=== PATIENT | male | born 1965 | race Caucasian/White ===

== ENCOUNTER 2021-11-16 18:24 | Inpatient (IN) ==
[2021-11-16 20:16] LABS: Basophils % 0.4 %; Eosinophils # 0.3 K/mcL (0.0-0.6); Eosinophils % 3.2 %; Hematocrit 53.7 % (37.5-50.1); Hemoglobin 18.2 g/dL (12.9-16.9); Immature Granulocytes % 0.3 % (0-4); Lymphocytes # 1.9 K/mcL (0.6-4.6); Lymphocytes % 20.6 %; Mean Corpuscular HGB Conc 33.9 g/dL (31.6-35.5); Mean Corpuscular Hemoglobin 30.8 pg (28.0-33.3); Mean Corpuscular Volume 90.9 fL (83.0-100.0); Mean Platelet Volume 9.8 fL (9.4-12.4); Monocytes % 10.5 %; Platelet Count 227 K/mcL (140-400); Red Blood Count 5.91 M/mcL (4.19-5.50); Red Cell Distribution Width 12.6 % (11.5-14.5); White Blood Count 9.3 K/mcL (4.3-11.1)
[2021-11-16] MEDS: 0.9 % Sodium Chloride 1,000 ML ONE (20:18)
[2021-11-16] MEDS ORDERED: Levalbuterol Neb 1.25 MG/3 ML IH ONE ×2 (20:24→21:46)
[2021-11-16 20:39] LABS: BUN/Creatinine Ratio 17 (6-26); Blood Urea Nitrogen 16 mg/dL (6-20); Calcium 8.4 mg/dL (8.6-10.3); Carbon Dioxide 26 mEq/L (23-29); Chloride 98 mEq/L (98-107); Glucose 142 mg/dL (70-105); Osmolality,Calculated 280 (280-300); Potassium 4.3 mEq/L (3.5-5.1); Sodium 133 mEq/L (136-145); eGFR For African Americans > 60 (> 60); eGFR For Non-African Americans > 60 (> 60)
[2021-11-16 20:44] LABS: Troponin I 0.08 ng/mL (< 0.04)
[2021-11-16] MEDS ORDERED: Isovue-370 500 ML BOTTLE IVP ONE (20:50)
[2021-11-16] MEDS ORDERED: Morphine Sulfate 2 MG/ML SYRINGE IVP ONE (21:05)
[2021-11-16] MEDS ORDERED: *HR* FentaNYL (PF) 100 MCG/2 ML VIAL IVP ONE (21:27)
[2021-11-16] MEDS ORDERED: methylPREDNISolone 125 MG/2 ML VIAL IVP ONE (21:47)
[2021-11-16] MEDS ORDERED: *HR* Heparin 5,000 UNIT/ML VIAL IVP ONE (22:01)
[2021-11-16] MEDS ORDERED: *HR* Heparin 5,000 UNIT/ML VIAL IVP PRN ×2 (22:01)
[2021-11-16] MEDS ORDERED: Heparin 25,000UNIT/250ML 1/2NS 25,000 UNIT/250 ML IV.SOLN IVC SCH (22:15)
[2021-11-16 22:37] LABS: INR 1.2
[2021-11-16 22:40] LABS: Activated Partial Thrombo Time 29.6 Seconds (26.0-36.0)
[2021-11-16 23:14] LABS: Influenza A PCR Negative (Negative); Influenza B PCR Negative (Negative); Resp. Syncytial Virus PCR Negative (Negative)
[2021-11-16] MEDS ORDERED: Furosemide 20 MG/2 ML VIAL IVP ONE (23:16)
[2021-11-16 23:28] LABS: SARS-CoV-2 by PCR (In House) Positive (Negative)
[2021-11-17] MEDS ORDERED: Naloxone 0.4 MG/ML INJ IVP PRN (01:22)
[2021-11-17] MEDS ORDERED: Acetaminophen 325 MG TABLET PO PRN (01:22)
[2021-11-17] MEDS ORDERED: Ondansetron 4 MG/2 ML VIAL IVP PRN (01:22)
[2021-11-17 02:14] LABS: White Blood Count 9.7 K/mcL (4.3-11.1)
[2021-11-17 02:15] LABS: Basophils % 0.3 %; Hematocrit 51.8 % (37.5-50.1); Hemoglobin 17.7 g/dL (12.9-16.9); Immature Granulocytes % 0.8 % (0-4); Lymphocytes # 0.9 K/mcL (0.6-4.6); Lymphocytes % 9.1 %; Mean Corpuscular HGB Conc 34.2 g/dL (31.6-35.5); Mean Corpuscular Hemoglobin 30.6 pg (28.0-33.3); Mean Corpuscular Volume 89.5 fL (83.0-100.0); Mean Platelet Volume 10.1 fL (9.4-12.4); Monocytes # 0.2 K/mcL (0.0-1.3); Monocytes % 2.3 %; Neutrophils # 8.5 K/mcL (1.6-8.9); Platelet Count 226 K/mcL (140-400); Red Blood Count 5.79 M/mcL (4.19-5.50); Red Cell Distribution Width 12.6 % (11.5-14.5); Segmented Neutrophils % 87.5 %
[2021-11-17 02:17] LABS: INR 1.3; Prothrombin Time 14.3 Seconds (9.4-12.1)
[2021-11-17] MEDS ORDERED: *HR* Metoprolol 5 MG/5 ML VIAL IVP ONE ×2 (02:25→03:38)
[2021-11-17 02:26] LABS: Alanine Aminotransferase 28 Units/L (7-52); Albumin 4.1 g/dL (3.5-5.7); Albumin/Globulin Ratio 1.3 (1.1-2.2); Alkaline Phosphatase 59 Units/L (34-104); Aspartate Amino Transferase 20 Units/L (13-39); BUN/Creatinine Ratio 20 (6-26); Bilirubin,Total 1.1 mg/dL (0.3-1.0); Blood Urea Nitrogen 15 mg/dL (6-20); C-Reactive Protein 24 mg/L (Less than 10); Calcium 8.8 mg/dL (8.6-10.3); Carbon Dioxide 23 mEq/L (23-29); Chloride 99 mEq/L (98-107); Globulin 3.2 g/dL (2.4-3.5); Glucose 150 mg/dL (70-105); Lactate Dehydrogenase 168 Units/L (140-271); Magnesium 1.7 mg/dL (1.6-2.6); Osmolality,Calculated 280 (280-300); Phosphorous 3.1 mg/dL (2.7-4.5); Sodium 133 mEq/L (136-145); Total Protein 7.3 g/dL (6.4-8.9); eGFR For African Americans > 60 (> 60); eGFR For Non-African Americans > 60 (> 60)
[2021-11-17] MEDS ORDERED: Aspirin Enteric Coated 325 MG Tablet PO ONE (02:26)
[2021-11-17] MEDS ORDERED: Perflutren Lipid Microsphere 1.3 ML in 0.9 % Sodium Chloride 8.7 ML IVP PRN (02:31)
[2021-11-17] MEDS ORDERED: Nicotine 2 MG GUM BC ONE (02:34)
[2021-11-17 02:35] LABS: Troponin I 0.07 ng/mL (< 0.04)
[2021-11-17 02:42] LABS: Activated Partial Thrombo Time 239.1 Seconds (26.0-36.0)
[2021-11-17 02:47] LABS: Ferritin 366 ng/mL (20-250)
[2021-11-17] MEDS ORDERED: Saliva Stimulant 44.3ml BOTTLE PO PRN (02:53)
[2021-11-17] MEDS ORDERED: Saline Nasal Spray 44 ML BOTTLE NS PRN (02:53)
[2021-11-17] MEDS ORDERED: *HR* Heparin 5,000 UNIT/ML VIAL IVP PRN ×2 (03:11)
[2021-11-17] MEDS ORDERED: DilTIAZem 50 MG/50 ML IV.SOLN IVC SCH (03:45)
[2021-11-17] MEDS ORDERED: *HR* LORazepam 0.5 MG TABLET PO ONE (03:51)
[2021-11-17] MEDS ORDERED: MethylPREDNISolone 40 MG/ML VIAL IVP SCH (04:00)
[2021-11-17] MEDS ORDERED: Metoprolol XL (24 HR) Succ 50 MG TAB.ER.24H PO SCH ×2 (04:00→09:00)
[2021-11-17] MEDS ORDERED: Remdesivir 200 MG in 0.9 % Sodium Chloride 100 ML IVPB ONE (05:00)
[2021-11-17] MEDS: Heparin 25,000UNIT/250ML 1/2NS 25,000 UNIT/250 ML IV.SOLN IVC SCH ×2 (05:04→21:38)
[2021-11-17 05:21] LABS: Chol/HDL Ratio 5.4 (0-4.9)
[2021-11-17 05:33] LABS: Thyroid Stimulating Hormone 0.379 mcIU/mL (0.340-5.600)
[2021-11-17] MEDS ORDERED: D5% in Water 1,000 ML IVC PRN (06:36)
[2021-11-17] MEDS ORDERED: *HR* Dextrose 50 % in Water (Syg) 50 ML SYRINGE IVP PRN (06:36)
[2021-11-17] MEDS ORDERED: Dextrose Gel 15 GM/37.5 ML TUBE PO PRN ×2 (06:36)
[2021-11-17] MEDS: Levalbuterol Neb 0.63 MG/3 ML IH SCH ×2 (07:56→11:49)
[2021-11-17] MEDS: Ipratropium Neb 0.5 MG NEBULIZER IH SCH ×2 (07:56→11:49)
[2021-11-17] MEDS: Furosemide 20 MG/2 ML VIAL IVP SCH (08:27)
[2021-11-17] MEDS: Cholecalciferol (D-3) 1,000 UNIT (25MCG) TABLET PO SCH (08:28)
[2021-11-17] MEDS: cefTRIAXone 1,000 MG in Water for inj. (sterile) 10 ML IVP SCH (08:28)
[2021-11-17] MEDS: Multivit/Ca/Min/Fe/FA 1 TAB TABLET PO SCH (08:28)
[2021-11-17] MEDS: Metoprolol XL (24 HR) Succ 25 MG TAB.ER.24H PO SCH ×2 (08:28→20:09)
[2021-11-17] MEDS: Chlorhexidine Rinse 15 ML MOUTHWASH MM SCH ×2 (08:28→20:09)
[2021-11-17] MEDS: *HR* OxyCODONE/APAP 5/325 TABLET PO PRN ×3 (08:28→21:37)
[2021-11-17] MEDS: Insulin LISPRO 300 UNITS/3 ML VIAL SUBQ SCH ×2 (08:34→12:59)
[2021-11-17] MEDS: Doxycycline 100 MG in 0.9 % Sodium Chloride Mini Bag 100 ML IVPB SCH ×2 (08:34→18:03)
[2021-11-17] MEDS ORDERED: Artificial Tears SOLN 15 ML BOTTLE BOTH EYES SCH (09:00)
[2021-11-17 09:15] LABS: Estimated Average Glucose 126 mg/dl
[2021-11-17 09:59] LABS: Amphetamine Screen,Urine Negative ng/mL (Cutoff=1000); Barbiturate Screen,Urine Negative ng/mL (Cutoff=200); Benzodiazepines Screen,Urine Negative ng/mL (Cutoff=200); Cannabinoid Screen,Urine Positive ng/mL (Cutoff = 50); Cocaine Screen,Urine Negative ng/mL (Cutoff= 300); Opiate Screen,Urine Positive ng/mL (Cutoff=300); Phencyclidine Screen,Urine Negative ng/mL (Cutoff=25)
[2021-11-17] MEDS ORDERED: Budesonide/Formoterol 160/4.5 1 PUFF INH IH SCH (10:00)
[2021-11-17] MEDS: Ipratropium 1 PUFF INHALER IH SCH ×2 (16:41→22:35)
[2021-11-17] MEDS ORDERED: *HR* Metoprolol 5 MG/5 ML VIAL IVP STA (18:37)
[2021-11-17] MEDS ORDERED: 0.9 % Sodium Chloride 1,000 ML ONE (19:51)
[2021-11-17] MEDS: Melatonin 3 MG TABLET PO PRN (20:09)
[2021-11-17] MEDS: Budesonide/Formoterol 160/4.5 1 PUFF INH IH SCH (22:34)
[2021-11-18 01:25] LABS: Basophils % 0.1 %; Hemoglobin 15.9 g/dL (12.9-16.9); Immature Granulocytes % 0.5 % (0-4); Lymphocytes # 1.6 K/mcL (0.6-4.6); Lymphocytes % 16.4 %; Mean Corpuscular HGB Conc 34.6 g/dL (31.6-35.5); Mean Corpuscular Hemoglobin 31.2 pg (28.0-33.3); Mean Corpuscular Volume 90.4 fL (83.0-100.0); Mean Platelet Volume 9.9 fL (9.4-12.4); Monocytes # 0.9 K/mcL (0.0-1.3); Monocytes % 8.6 %; Neutrophils # 7.5 K/mcL (1.6-8.9); Platelet Count 204 K/mcL (140-400); Red Blood Count 5.09 M/mcL (4.19-5.50); Red Cell Distribution Width 12.6 % (11.5-14.5); Segmented Neutrophils % 74.4 %
[2021-11-18 01:42] LABS: BUN/Creatinine Ratio 22 (6-26); Blood Urea Nitrogen 20 mg/dL (6-20); Calcium 8.7 mg/dL (8.6-10.3); Carbon Dioxide 24 mEq/L (23-29); Chloride 101 mEq/L (98-107); Glucose 153 mg/dL (70-105); Magnesium 1.9 mg/dL (1.6-2.6); Osmolality,Calculated 278 (280-300); Potassium 4.5 mEq/L (3.5-5.1); Sodium 131 mEq/L (136-145); eGFR For African Americans > 60 (> 60); eGFR For Non-African Americans > 60 (> 60)
[2021-11-18] MEDS: Ipratropium 1 PUFF INHALER IH SCH ×4 (03:57→20:35)
[2021-11-18] MEDS: Remdesivir 100 MG in 0.9 % Sodium Chloride 100 ML IVPB SCH (05:39)
[2021-11-18] MEDS: Doxycycline 100 MG in 0.9 % Sodium Chloride Mini Bag 100 ML IVPB SCH ×2 (05:40→17:26)
[2021-11-18] MEDS: 0.9 % Sodium Chloride 1,000 ML ONE (05:41)
[2021-11-18] MEDS: cefTRIAXone 1,000 MG in Water for inj. (sterile) 10 ML IVP SCH (07:59)
[2021-11-18] MEDS: Furosemide 20 MG/2 ML VIAL IVP SCH (08:00)
[2021-11-18] MEDS: Chlorhexidine Rinse 15 ML MOUTHWASH MM SCH (08:00)
[2021-11-18] MEDS: Cholecalciferol (D-3) 1,000 UNIT (25MCG) TABLET PO SCH (08:01)
[2021-11-18] MEDS: Aspirin Enteric Coated 81 MG Tablet PO SCH (08:01)
[2021-11-18] MEDS: Multivit/Ca/Min/Fe/FA 1 TAB TABLET PO SCH (08:01)
[2021-11-18] MEDS: *HR* OxyCODONE/APAP 5/325 TABLET PO PRN ×3 (08:02→19:57)
[2021-11-18] MEDS: Metoprolol XL (24 HR) Succ 25 MG TAB.ER.24H PO SCH ×2 (08:02→19:58)
[2021-11-18] MEDS: Budesonide/Formoterol 160/4.5 1 PUFF INH IH SCH ×2 (10:56→20:33)
[2021-11-18 17:47] LABS: Albumin/Globulin Ratio 1.5 (1.1-2.2); Bilirubin,Direct 0.1 mg/dL (0.0-0.2); Bilirubin,Indirect 0.3 mg/dL (0.0-1.0); Bilirubin,Total 0.4 mg/dL (0.3-1.0); Globulin 2.6 g/dL (2.4-3.5); Total Protein 6.6 g/dL (6.4-8.9)
[2021-11-18] MEDS: Melatonin 3 MG TABLET PO PRN (19:58)
[2021-11-18] MEDS: Heparin 25,000UNIT/250ML 1/2NS 25,000 UNIT/250 ML IV.SOLN IVC SCH (22:02)
[2021-11-19] MEDS: Ipratropium 1 PUFF INHALER IH SCH ×2 (03:33→10:56)
[2021-11-19] MEDS: *HR* OxyCODONE/APAP 5/325 TABLET PO PRN (04:48)
[2021-11-19] MEDS: Remdesivir 100 MG in 0.9 % Sodium Chloride 100 ML IVPB SCH (04:50)
[2021-11-19] MEDS: Doxycycline 100 MG in 0.9 % Sodium Chloride Mini Bag 100 ML IVPB SCH (04:57)
[2021-11-19 06:13] LABS: Basophils % 0.1 %; Eosinophils % 0.1 %; Hemoglobin 15.7 g/dL (12.9-16.9); Immature Granulocytes % 0.7 % (0-4); Lymphocytes # 1.9 K/mcL (0.6-4.6); Lymphocytes % 20.8 %; Mean Corpuscular HGB Conc 34.1 g/dL (31.6-35.5); Mean Corpuscular Volume 90.9 fL (83.0-100.0); Mean Platelet Volume 10.4 fL (9.4-12.4); Monocytes # 0.6 K/mcL (0.0-1.3); Monocytes % 6.5 %; Neutrophils # 6.6 K/mcL (1.6-8.9); Platelet Count 224 K/mcL (140-400); Red Blood Count 5.06 M/mcL (4.19-5.50); Red Cell Distribution Width 12.7 % (11.5-14.5); Segmented Neutrophils % 71.8 %; White Blood Count 9.1 K/mcL (4.3-11.1)
[2021-11-19 06:21] LABS: BUN/Creatinine Ratio 32 (6-26); Blood Urea Nitrogen 24 mg/dL (6-20); Calcium 8.7 mg/dL (8.6-10.3); Carbon Dioxide 26 mEq/L (23-29); Chloride 100 mEq/L (98-107); Glucose 129 mg/dL (70-105); Magnesium 1.9 mg/dL (1.6-2.6); Osmolality,Calculated 282 (280-300); Potassium 3.9 mEq/L (3.5-5.1); Sodium 133 mEq/L (136-145); eGFR For African Americans > 60 (> 60); eGFR For Non-African Americans > 60 (> 60)
[2021-11-19 06:23] LABS: Albumin 3.8 g/dL (3.5-5.7); Albumin/Globulin Ratio 1.5 (1.1-2.2); Bilirubin,Direct 0.1 mg/dL (0.0-0.2); Bilirubin,Indirect 0.3 mg/dL (0.0-1.0); Bilirubin,Total 0.4 mg/dL (0.3-1.0); Globulin 2.5 g/dL (2.4-3.5); Total Protein 6.3 g/dL (6.4-8.9)
[2021-11-19 08:38] VITALS: TEMP 98.5
[2021-11-19] MEDS: cefTRIAXone 1,000 MG in Water for inj. (sterile) 10 ML IVP SCH (09:01)
[2021-11-19] MEDS: Cholecalciferol (D-3) 1,000 UNIT (25MCG) TABLET PO SCH (09:03)
[2021-11-19] MEDS: Aspirin Enteric Coated 81 MG Tablet PO SCH (09:03)
[2021-11-19] MEDS: Metoprolol XL (24 HR) Succ 25 MG TAB.ER.24H PO SCH (09:03)
[2021-11-19] MEDS: Multivit/Ca/Min/Fe/FA 1 TAB TABLET PO SCH (09:03)
[2021-11-19] MEDS: Furosemide 20 MG/2 ML VIAL IVP SCH (09:03)
[2021-11-19 09:06] VITALS: BP 129/105; PULSE 76
[2021-11-19] MEDS: Budesonide/Formoterol 160/4.5 1 PUFF INH IH SCH (10:57)
[2021-11-19 11:03] VITALS: O2SAT 92
== END 2021-11-19 11:20 | disposition left against medical advice (07) | DRG 177 ==
LOC: 2NENU 18:24 → EMEROOARM 18:24 → SUATTDRO 23:33 → 2NENU 11-17 00:45 → SUATTDRO 11-17 06:33
PROVIDERS: ADMIT Internal Medicine; ATTEND Family Medicine

== ENCOUNTER 2022-03-07 11:22 | Inpatient (IN) ==
[2022-03-07] MEDS ORDERED: Furosemide 40 MG/4 ML VIAL IVP ONE (12:06)
[2022-03-07] MEDS ORDERED: Amiodarone Premix 360 MG/200 ML BAG IVC ONE ×2 (12:06→18:58)
[2022-03-07] MEDS ORDERED: Ipratropium/Albuterol Neb 3 ML IH ONE (12:06)
[2022-03-07] MEDS ORDERED: Amiodarone Premix 150 MG/100 ML BAG IVPB ONE (12:09)
[2022-03-07 12:22] LABS: Basophils # 0.1 K/mcL (0.0-0.2); Basophils % 0.4 %; Eosinophils # 0.1 K/mcL (0.0-0.6); Eosinophils % 0.5 %; Hemoglobin 17.1 g/dL (12.9-16.9); Immature Granulocytes % 0.5 % (0-4); Lymphocytes # 1.8 K/mcL (0.6-4.6); Lymphocytes % 14.4 %; Mean Corpuscular HGB Conc 32.9 g/dL (31.6-35.5); Mean Corpuscular Hemoglobin 30.6 pg (28.0-33.3); Mean Platelet Volume 9.3 fL (9.4-12.4); Monocytes # 1.1 K/mcL (0.0-1.3); Monocytes % 8.8 %; Neutrophils # 9.3 K/mcL (1.6-8.9); Platelet Count 333 K/mcL (140-400); Red Blood Count 5.59 M/mcL (4.19-5.50); Red Cell Distribution Width 13.4 % (11.5-14.5); Segmented Neutrophils % 75.4 %; White Blood Count 12.3 K/mcL (4.3-11.1)
[2022-03-07 12:28] LABS: VBG HCO3 29 mEq/L (21-27); VBG PCO2 53 mmHg (41-51); VBG PH 7.35 pH Units (7.32-7.42); VBG PO2 47 mmHg (25-50)
[2022-03-07 12:56] LABS: Alanine Aminotransferase 51 Units/L (7-52); Albumin 4.1 g/dL (3.5-5.7); Albumin/Globulin Ratio 1.3 (1.1-2.2); Alkaline Phosphatase 83 Units/L (34-104); Aspartate Amino Transferase 28 Units/L (13-39); BUN/Creatinine Ratio 39 (6-26); Bilirubin,Direct 0.3 mg/dL (0.0-0.2); Bilirubin,Indirect 1.2 mg/dL (0.0-1.0); Bilirubin,Total 1.5 mg/dL (0.3-1.0); Blood Urea Nitrogen 35 mg/dL (6-20); Calcium 9.3 mg/dL (8.6-10.3); Carbon Dioxide 29 mEq/L (23-29); Chloride 89 mEq/L (98-107); Globulin 3.1 g/dL (2.4-3.5); Glucose 122 mg/dL (70-105); Magnesium 2.3 mg/dL (1.6-2.6); Osmolality,Calculated 271 (280-300); Potassium 4.8 mEq/L (3.5-5.1); Sodium 126 mEq/L (136-145); Total Protein 7.2 g/dL (6.4-8.9)
[2022-03-07] MEDS: Acetaminophen 325 MG TABLET PO ONE ×2 (14:01→14:04)
[2022-03-07] MEDS ORDERED: Naloxone 0.4 MG/ML INJ IVP PRN (14:49)
[2022-03-07 16:00] LABS: Troponin I < 0.03 ng/mL (< 0.04)
[2022-03-07] MEDS ORDERED: Ipratropium/Albuterol Neb 3 ML IH PRN (16:17)
[2022-03-07] MEDS ORDERED: *HR* Heparin 5,000 UNIT/ML VIAL IVP ONE (16:27)
[2022-03-07] MEDS ORDERED: *HR* Heparin 5,000 UNIT/ML VIAL IVP PRN ×2 (16:27)
[2022-03-07] MEDS ORDERED: Heparin 25,000UNIT/250ML 1/2NS 25,000 UNIT/250 ML IV.SOLN IVC SCH ×2 (16:30)
[2022-03-07] MEDS: *HR* HYDROcodone/Acet 5/325 mg TABLET PO PRN ×2 (16:43→20:53)
[2022-03-07] MEDS ORDERED: D5% in Water 1,000 ML IVC PRN (17:08)
[2022-03-07] MEDS ORDERED: *HR* Dextrose 50 % in Water (Syg) 50 ML SYRINGE IVP PRN (17:08)
[2022-03-07] MEDS ORDERED: Dextrose Gel 15 GM/37.5 ML TUBE PO PRN ×2 (17:08)
[2022-03-07 18:52] LABS: Hematocrit 53.7 % (37.5-50.1); Hemoglobin 17.9 g/dL (12.9-16.9); Mean Corpuscular HGB Conc 33.3 g/dL (31.6-35.5); Mean Corpuscular Volume 92.9 fL (83.0-100.0); Mean Platelet Volume 9.4 fL (9.4-12.4); Platelet Count 334 K/mcL (140-400); Red Blood Count 5.78 M/mcL (4.19-5.50); Red Cell Distribution Width 13.4 % (11.5-14.5); White Blood Count 14.8 K/mcL (4.3-11.1)
[2022-03-07 18:58] LABS: INR 1.5; Prothrombin Time 16.6 Seconds (9.4-12.1)
[2022-03-07 19:01] LABS: Activated Partial Thrombo Time 35.3 Seconds (26.0-36.0); Heparin anti-factor XA UFH < 0.04 IU/mL (0.30-0.70)
[2022-03-07] MEDS ORDERED: traZODone 50 MG TABLET PO PRN (20:07)
[2022-03-07] MEDS: Levalbuterol Neb 1.25 MG/3 ML IH SCH ×2 (20:23→20:29)
[2022-03-07] MEDS: Ipratropium Neb 0.5 MG NEBULIZER IH SCH ×2 (20:23→20:29)
[2022-03-07 20:25] LABS: Calcium 9.2 mg/dL (8.6-10.3); Potassium 5.2 mEq/L (3.5-5.1)
[2022-03-07] MEDS ORDERED: Furosemide 80 MG in 0.9 % Sodium Chloride 50 ML IVPB SCH (21:00)
[2022-03-07] MEDS ORDERED: Furosemide 40 MG/4 ML VIAL IVP SCH (21:00)
[2022-03-07] MEDS ORDERED: Insulin LISPRO 300 UNITS/3 ML VIAL SUBQ SCH (21:00)
[2022-03-07 21:26] LABS: Calcium 8.8 mg/dL (8.6-10.3); Magnesium 2.3 mg/dL (1.6-2.6); Potassium 4.6 mEq/L (3.5-5.1)
[2022-03-07] MEDS ORDERED: cefTRIAXone 1,000 MG in 0.9 % Sodium Chloride 10 ML IVP SCH (22:00)
[2022-03-07] MEDS: Ipratropium/Albuterol Neb 3 ML IH SCH (22:42)
[2022-03-07] MEDS: Levalbuterol Neb 0.63 MG/3 ML IH SCH (22:49)
[2022-03-08] MEDS ORDERED: MethylPREDNISolone 40 MG/ML VIAL IVP SCH
[2022-03-08 00:09] VITALS: BP 107/85; TEMP 97.5
[2022-03-08] MEDS ORDERED: Amiodarone Premix 360 MG/200 ML BAG IVC SCH (00:54)
[2022-03-08] MEDS: *HR* HYDROcodone/Acet 5/325 mg TABLET PO PRN (01:16)
[2022-03-08 01:30] VITALS: PULSE 101
[2022-03-08] MEDS ORDERED: *HR* LORazepam 2 MG/ML VIAL IVP ONE (02:29)
[2022-03-08] MEDS ORDERED: Lidocaine Drip 2 GM/250 ML IV.SOLN IVC ONE (03:19)
[2022-03-08] MEDS: Ipratropium/Albuterol Neb 3 ML IH SCH (05:15)
[2022-03-08] MEDS: Ipratropium Neb 0.5 MG NEBULIZER IH SCH (05:15)
[2022-03-08] MEDS: Levalbuterol Neb 0.63 MG/3 ML IH SCH (05:15)
[2022-03-08] MEDS ORDERED: Insulin LISPRO 300 UNITS/3 ML VIAL SUBQ SCH (07:30)
[2022-03-08 08:41] VITALS: O2SAT 78
[2022-03-08] MEDS ORDERED: *HR* EPINEPHrine 1 MG/10 ML SYRINGE IVP ONE (08:59)
== END 2022-03-08 09:00 | disposition expired | DRG 292 ==
LOC: EMEROOARM 11:22 → 2NNU 16:42 → ICNU 03-08 03:44
PROVIDERS: ADMIT Internal Medicine; ATTEND Internal Medicine